=== PATIENT | male | born 1955 | race Caucasian/White ===

== ENCOUNTER 2019-06-27 08:44 | Outpatient (CLI) | payer OTHER ==
--- NOTE | 2019-06-27 09:08 | RAD ---
PA AND LATERAL CHEST: HISTORY: Dyspnea. COMPARISON: 10/08/2008 study. FINDINGS: Heart size is within normal limits. There are postop sternotomy changes. Some chronic-appearing int erstitial change is seen. Symmetric nodular densities in the bases are felt to be on the basis of ni pple shadow. Nipple films would be required for definite confirmation. IMPRESSION: Chronic-appearing lung change. POS: [facility]
== END 2019-06-27 08:45 | disposition home or self-care (01) ==
LOC: RAD 08:44
PROVIDERS: ATTEND Internal Medicine Critical Care Medicine
DX: R06.00 Dyspnea, unspecified (principal)
CPT/HCPCS: 71046

== ENCOUNTER 2022-07-01 10:32 | Outpatient (CLI) | payer MEDICARE, OTHER | END 2022-07-01 10:33 | disposition home or self-care (01) | LOC: RAD 10:32 | PROVIDERS: ATTEND Internal Medicine Critical Care Medicine | DX: R06.00 Dyspnea, unspecified (principal); R91.1 Solitary pulmonary nodule | CPT/HCPCS: 71046 ==

== ENCOUNTER 2022-11-08 10:24 | Outpatient (CLI) | payer MEDICARE, OTHER | END 2022-11-08 10:25 | disposition home or self-care (01) | LOC: BICCT 10:24 | PROVIDERS: ATTEND Internal Medicine Critical Care Medicine | DX: R91.8 Other nonspecific abnormal finding of lung field (principal) | CPT/HCPCS: 71250 ==

== ENCOUNTER 2022-11-25 10:49 | Outpatient (CLI) | payer MEDICARE, OTHER ==
[2022-11-25] MEDS ORDERED: Magnevist 469MG/ML 20 ML VIAL ONE (15:23)
== END 2022-11-25 10:50 | disposition home or self-care (01) ==
LOC: BICMRI 10:49
PROVIDERS: ATTEND Internal Medicine Critical Care Medicine
DX: K76.9 Liver disease, unspecified (principal); R91.1 Solitary pulmonary nodule; D18.03 Hemangioma of intra-abdominal structures
CPT/HCPCS: 74183; 78815; A9552; A9579

== ENCOUNTER 2023-05-25 10:43 | Outpatient (CLI) | payer MEDICARE, OTHER | END 2023-05-25 10:44 | disposition home or self-care (01) | LOC: BICCT 10:43 | PROVIDERS: ATTEND Internal Medicine Critical Care Medicine | DX: R91.8 Other nonspecific abnormal finding of lung field (principal); K76.9 Liver disease, unspecified | CPT/HCPCS: 71250 ==

== ENCOUNTER 2024-05-25 09:29 | Outpatient (CLI) | payer MEDICARE, OTHER | END 2024-05-25 09:30 | disposition home or self-care (01) | LOC: BICCT 09:29 | PROVIDERS: ATTEND Internal Medicine Critical Care Medicine | DX: R91.8 Other nonspecific abnormal finding of lung field (principal) | CPT/HCPCS: 71250 ==